=== PATIENT | female | born 1970 | race American Indian/Alaskan Native ===

== ENCOUNTER 2019-03-15 15:06 | Observation (INO) | payer OTHER ==
[2019-03-15] MEDS ORDERED: ASPIRIN PO ONE (15:30)
--- NOTE | 2019-03-15 16:32 | Emergency Department Report ---
ED Chest Pain HPI - General Chief Complaint: Chest Pain Stated Complaint: CHEST PAIN Time Seen by Provider: 03/15/19 15:50 Source: EMS Mode of arrival: Ambulatory Limitations: No Limitations - History of Present Illness Initial Comments: 48-year-old female with history of hypertension and diabetes presents to ED with chest pain. States pain was substernal radiating into her right arm. Denies shortness of breath. Patient states pain began while she was at court this afternoon. Patient reports she has been having the same intermittent chest pain over the last 3 weeks. Underwent stress test one week ago that she is scheduled to undergo cardiac cath in 2 days. Patient given aspirin and nitroglycerin by EMS, reported chest pain has improved. MD Complaint: chest pain -: This afternoon Onset: during rest Pain Location: substernal Pain Radiation: RUE Severity: moderate Severity scale (0 -10): 6 Quality: tightness Improves With: nitroglycerin Worsens With: nothing re: denies: dyspnea Treatments Prior to Arrival: aspirin, nitroglycerin - Related Data Home Medications Medication Instructions Recorded Confirmed Last Taken Carvedilol [Coreg] 25 mg PO BID 03/15/19 03/15/19 Unknown Chlorthalidone [Thalitone] 25 mg PO QDAY 03/15/19 03/15/[address] [Voltaren Dr] 75 mg PO BID 03/15/19 03/15/19 Unknown Esomeprazole Magnesium [Nexium 40 mg PO QDAY 03/15/19 03/15/19 03/15/19 24Hr] Furosemide [Lasix TAB] 40 mg PO QDAY 03/15/19 03/15/19 Unknown NIFEdipine [Nifedipine ER] 30 mg PO QDAY 03/15/19 03/15/19 03/15/19 Phentermine HCl [Adipex-P] 37.5 mg PO QAM 03/15/19 03/15/19 03/15/19 metFORMIN XR [Glucophage XR] 500 mg PO QDAY 03/15/19 03/15/19 Unknown Allergies Allergy/AdvReac Type Severity Reaction Status Date / Time codeine AdvReac Rash Verified 03/15/19 15:54 Heart Score - HEART Score History: Moderately suspicious EKG: Non-specific Age: 45-65 Risk factors: 1-2 risk factors Troponin: < normal limit HEART Score: 4 ED Review of Systems ROS: Stated complaint: CHEST PAIN Other details as noted in HPI Comment: All other systems reviewed and negative Constitutional: denies: chills, fever Respiratory: denies: shortness of breath Cardiovascular: chest pain Gastrointestinal: denies: nausea, vomiting ED Past Medical Hx - Past Medical History Previous Medical History?: Yes Hx Hypertension: No Hx CVA: No Hx Heart Attack/AMI: No Hx Congestive Heart Failure: No Hx Diabetes: Yes Hx Deep Vein Thrombosis: No Hx Pulmonary Embolism: No Hx GERD: No Hx Liver Disease: No Hx Renal Disease: No Hx of Cancer: No Hx Sickle Cell Disease: No Hx Arthritis: No Hx Headaches / Migraines: No Hx Seizures: No Hx Kidney Stones: No Hx Psychiatric Treatment: No Hx Asthma: No Hx COPD: No Hx Tuberculosis: No Hx Dementia: No Hx HIV: Yes Additional medical history: hx of chest pain - Surgical History Past Surgical History?: No Hx Coronary Stent: No Hx Open Heart Surgery: No Hx Pacemaker: No Hx Internal Defibrillator: No Hx Cholecystectomy: No Hx Appendectomy: No Hx Breast Surgery: No - Social History Smoking Status: Never Smoker Substance Use Type: None - Medications Home Medications: Home Medications Medication Instructions Recorded Confirmed Last Taken Type Carvedilol [Coreg] 25 mg PO BID 03/15/19 03/15/19 Unknown History Chlorthalidone [Thalitone] 25 mg PO QDAY 03/15/19 03/15/[address] [Voltaren Dr] 75 mg PO BID 03/15/19 03/15/19 Unknown History Esomeprazole Magnesium [Nexium 40 mg PO QDAY 03/15/19 03/15/19 03/15/19 History 24Hr] Furosemide [Lasix TAB] 40 mg PO QDAY 03/15/19 03/15/19 Unknown History NIFEdipine [Nifedipine ER] 30 mg PO QDAY 03/15/19 03/15/19 03/15/19 History Phentermine HCl [Adipex-P] 37.5 mg PO QAM 03/15/19 03/15/19 03/15/19 History metFORMIN XR [Glucophage XR] 500 mg PO QDAY 03/15/19 03/15/19 Unknown History ED Physical Exam - General Limitations: No Limitations General appearance: alert, in no apparent distress, obese - Head Head exam: Present: atraumatic, normocephalic - Eye Eye exam: Present: normal appearance - ENT ENT exam: Present: mucous membranes moist - Neck Neck exam: Present: normal inspection - Respiratory Respiratory exam: Present: normal lung sounds bilaterally. Absent: respiratory distress - Cardiovascular Cardiovascular Exam: Present: regular rate, normal rhythm - GI/Abdominal GI/Abdominal exam: Absent: distended - Extremities Exam Extremities exam: Present: normal inspection - Neurological Exam Neurological exam: Present: alert, oriented X3 - Psychiatric Psychiatric exam: Present: normal affect, normal mood - Skin Skin exam: Present: warm, dry, intact, normal color ED Course Vital Signs 03/15/19 03/15/19 03/15/19 15:18 15:24 15:31 Temperature 98.2 F Pulse Rate 87 87 Respiratory 18 15 Rate Blood Pressure 179/87 178/104 Blood Pressure 179/87 [Right] O2 Sat by Pulse 99 98 99 Oximetry - Consultations Consultation #1: 03/15/19 18:38 Spoke w/ Dr Ch w/ [facility]. Is aware of pt. ED Medical Decision Making - Lab Data Result diagrams: 03/15/19 17:14 03/15/19 17:14 - EKG Data -: EKG Interpreted by [place] EKG shows normal: sinus rhythm, axis, intervals, QRS complexes, ST-T waves Rate: normal - EKG Data Interpretation: LVH, other (previous anterior infarct) - Radiology Data Radiology results: report reviewed, image reviewed - Medical Decision Making 48 yo F w/ HTN presents with chest pain, onset while in court. History of abnormal stress test last week w/ Dr Henson of [facility]. Scheduled to have cardiac cath in 2 days. EKG shows no ST changes, troponin negative. Spoke w/ stone derrickman and rigger. States keep NPO after midnight in case pt undergoes cath tomorrow. Spoke w/ hospitalist, Dr Nixon, who will be admitting the patient. - Differential Diagnosis ACS, CHF, pneumonia Critical care attestation.: If time is entered above; I have spent that time in minutes in the direct care of this critically ill patient, excluding procedure time. ED Disposition Clinical Impression: Chest pain Disposition: -09 OP ADMIT IP TO THIS HOSP Is pt being admited?: Yes Condition: Stable Time of Disposition: 18:09
[2019-03-15] MEDS ORDERED: NITROSTAT SL ONE (17:05)
[2019-03-15] MEDS ORDERED: NITROSTAT SL PRN (17:27)
[2019-03-15 17:30] LABS: Basophils # (Auto) 0.2 K/mm3 (0.0-0.1); Basophils % (Auto) 1.2 % (0.0-1.8); Eosinophils # (Auto) 0.2 K/mm3 (0.0-0.4); Eosinophils % (Auto) 1.1 % (0.0-4.3); Hematocrit 40.5 % (30.3-42.9); Hemoglobin 13.3 gm/dl (10.1-14.3); Lymphocytes # (Auto) 2.9 K/mm3 (1.2-5.4); Lymphocytes % (Auto) 20.6 % (13.4-35.0); Mean Corpuscular HGB Conc 33 % (30-34); Mean Corpuscular Volume 84 fl (79-97); Monocytes # (Auto) 0.9 K/mm3 (0.0-0.8); Monocytes % (Auto) 6.7 % (0.0-7.3); Platelet Count 375 K/mm3 (140-440); Red Blood Count 4.81 M/mm3 (3.65-5.03); Red Cell Distribution Width 15.2 % (13.2-15.2)
[2019-03-15] MEDS ORDERED: MORPHINE IV ONE (17:31)
[2019-03-15] MEDS ORDERED: ZOFRAN IV ONE (17:33)
[2019-03-15] MEDS ORDERED: ALUM-MAG HYDROX-SIMETH 200-200-20MG/5ML PO ONE (17:35)
--- NOTE | 2019-03-15 17:58 | XRay Report ---
PROCEDURE: XR CHEST 1V AP TECHNIQUE: Chest radiograph single view. HISTORY: Chest Pain COMPARISONS: None . FINDINGS: Heart: Normal. Mediastinum/Vessels: Normal. Lungs/Pleural space: Normal. Bony thorax: No acute osseous abnormality. Life support devices: None. IMPRESSION: No acute cardiopulmonary abnormality. This document is electronically signed by Dexter Lopes MD., Mar 15 2019 05:56:20 PM ET
[2019-03-15 18:02] LABS: BUN/Creatinine Ratio 13; Blood Urea Nitrogen 12 mg/dL (7-17); Calcium 9.1 mg/dL (8.4-10.2); Hemolysis Index 5
[2019-03-15 18:08] LABS: Bilirubin,Urine NEG (Negative); Blood,Urine SM (Negative); Color,Urine Yellow (Yellow); Protein,Urine <15 mg/dL mg/dL (Negative); Urobilinogen,Urine < 2.0 mg/dL (<2.0)
[2019-03-15] MEDS ORDERED: DILAUDID ONE (20:28)
[2019-03-15] MEDS: DILAUDID IV PRN (21:05)
[2019-03-15] MEDS ORDERED: SODIUM CHLORIDE FLUSH SYRINGE 10 ML IV PRN (22:25)
[2019-03-15] MEDS ORDERED: PERCOCET 5/325 PO PRN (22:25)
[2019-03-15] MEDS ORDERED: ZOFRAN IV PRN (22:25)
[2019-03-15] MEDS ORDERED: TYLENOL PO PRN (22:25)
[2019-03-16] MEDS: COREG PO SCH ×2 (01:24→11:45)
[2019-03-16] MEDS: PEPCID PO SCH ×2 (01:25→11:45)
[2019-03-16] MEDS: DILAUDID IV PRN ×2 (01:25→09:10)
[2019-03-16] MEDS: VOLTAREN DR PO SCH ×2 (01:36→13:05)
--- NOTE | 2019-03-16 06:45 | Event Note ---
Date: 03/15/19 See h/pinreports Chest pain For Cath Had w/u in [facility] offices by Dr Henson Hence Lexiscan and ECHO not ordered
[2019-03-16 07:19] LABS: Basophils # (Auto) 0.1 K/mm3 (0.0-0.1); Basophils % (Auto) 1.3 % (0.0-1.8); Eosinophils # (Auto) 0.2 K/mm3 (0.0-0.4); Eosinophils % (Auto) 1.8 % (0.0-4.3); Hematocrit 37.9 % (30.3-42.9); Hemoglobin 12.7 gm/dl (10.1-14.3); Lymphocytes # (Auto) 2.5 K/mm3 (1.2-5.4); Lymphocytes % (Auto) 24.4 % (13.4-35.0); Mean Corpuscular HGB Conc 34 % (30-34); Mean Corpuscular Volume 84 fl (79-97); Monocytes # (Auto) 0.6 K/mm3 (0.0-0.8); Monocytes % (Auto) 5.8 % (0.0-7.3); Platelet Count 302 K/mm3 (140-440); Red Blood Count 4.53 M/mm3 (3.65-5.03); Red Cell Distribution Width 15.5 % (13.2-15.2)
--- NOTE | 2019-03-16 07:39 | History and Physical Report ---
CHIEF COMPLAINT: Left-sided chest pain since 3 weeks. HISTORY OF PRESENT ILLNESS: A 48-year-old female with history of hypertension and diabetes, comes in for recurrent chest pain of 3 weeks' duration. The patient has been having chest pain for the past few weeks and the patient went to [facility] for Cardiology evaluation. The patient had a stress test and echocardiogram by Dr. Hneson and she is scheduled for cardiac catheterization on in [facility]. Chest pain is a dull to sharp and intermittent in nature. No diaphoresis, no palpitations. No shortness of breath. Chest pain is recurrent. Initially when she went to the Cardiology, it was for cardiac eval because of the family history. She was asymptomatic at that point. After being evaluated, the patient started developing chest pain for the last 3 weeks. The patient has history of hypertension and diabetes. PAST MEDICAL HISTORY: Significant for hypertension and diabetes. PAST SURGICAL HISTORY: None. SOCIAL HISTORY: Does not smoke. No alcohol, no recreational drugs. FAMILY HISTORY: Significant for hypertension and cardiac disease. CURRENT MEDICATIONS: Coreg 25 mg twice a day, chlorthalidone 25 mg once a day, Lasix 40 mg p.o. daily, nifedipine 30 mg p.o. daily, phentermine 37.5 p.o. daily, metformin 500 p.o. daily. REVIEW OF SYSTEMS: Significant for left-sided chest pain, intermittent for the last 3 weeks. Otherwise, review of systems negative. A 14-point review of systems done. PHYSICAL EXAMINATION: GENERAL: Middle-aged female, cooperative during examination. VITAL SIGNS: Blood pressure is 168/69, temperature is 97, pulse is 77, respirations 18. HEENT: Unremarkable. Pupils equal and reactive. NECK: Supple, no lymphadenopathy, no thyromegaly. LUNGS: Clear to auscultation and percussion. Good air entry. CARDIOVASCULAR SYSTEM: S1, S2 heard. No gallop, no murmur, no rub. Apical impulse in left fifth intercostal space in midclavicular line. ABDOMEN: Soft and benign. No hepatosplenomegaly, no guarding, no rigidity. Hernial orifices are normal. EXTREMITIES: Good pedal pulses. No pedal edema. CENTRAL NERVOUS SYSTEM: Alert and oriented x 4, nonfocal exam. SKIN: Normal. LABORATORY DATA: White count is 13,900, hemoglobin and hematocrit are normal. Platelet count is normal. Potassium is slightly high at 5.2, glucose is 124. A1c 6.7. Urine WBC 26. DIAGNOSTIC DATA: EKG shows sinus rhythm, heart rate of 75 per minute, LVH by voltage criteria. No acute ST-T wave changes. Nonspecific ST-T wave changes. Chest x-ray shows no cardiopulmonary abnormality. ASSESSMENT AND PLAN: 1. Chest pain, rule out myocardial infarction, chest pain protocol. Lexiscan and echocardiogram not ordered. Cardiology consult was requested. The patient was due for cardiac catheterization on , may be done tomorrow. 2. Hypertension. Continue antihypertensives. 3. Type 2 diabetes. Continue metformin and coverage. 4. Deep venous thrombosis prophylaxis, Lovenox 40 mg subcutaneous daily. [facility]# [id number] ADIEL/NTS
[2019-03-16 07:48] LABS: Alanine Aminotransferase 17 units/L (7-56); Albumin 3.5 g/dL (3.9-5); BUN/Creatinine Ratio 18; Blood Urea Nitrogen 14 mg/dL (7-17); Calcium 8.6 mg/dL (8.4-10.2); Hemolysis Index 14
[2019-03-16] MEDS ORDERED: GLUCOPHAGE XR PO SCH (08:00)
[2019-03-16] MEDS ORDERED: HEPARIN/NS 5000 UNIT/500ML(CATH LAB) 1,000 ML IR ONE (08:49)
[2019-03-16] MEDS ORDERED: XYLOCAINE 2% INFILTRATI ONE (08:49)
[2019-03-16] MEDS ORDERED: HEPARIN 10,000 UNITS/10 ML ONE (08:49)
[2019-03-16] MEDS ORDERED: SUBLIMAZE ONE (08:49)
[2019-03-16] MEDS ORDERED: VERSED ONE (08:49)
[2019-03-16] MEDS ORDERED: CALAN ONE (08:49)
[2019-03-16] MEDS ORDERED: NITROGLYCERIN SYRINGE 3 ML ONE (08:50)
[2019-03-16] MEDS ORDERED: ASPIRIN ONE (08:59)
[2019-03-16] MEDS ORDERED: NACL 0.9% 500 ML 500 ML IV SCH (09:00)
[2019-03-16] MEDS ORDERED: NACL 0.9% 500 ML 500 ML ONE (09:30)
--- NOTE | 2019-03-16 09:32 | Consultation ---
History of Present Illness Consult date: 03/16/19 Consult reason: chest pain History of present illness: Patient is a 48 year old woman with a history of Diabetes, Hypertension, Obstructive Sleep apnea on home CPAP who presented with chest pain. Cardiac consultation has been requested. Cycled cardiac enzymes are normal thus far and her ECG is sinus rhythm with anterior Qwaves. No change from prior ECG. Patient is known to [facility] with recent cardiac testing. An echocardiogram shows a normal left ventricular systolic function with a well preserved ejection fraction. A week ago she underwent a treadmill stress test that is reported as equivocal. Medications and Allergies Allergies Allergy/AdvReac Type Severity Reaction Status Date / Time codeine AdvReac Rash Verified 03/15/19 15:54 Home Medications Medication Instructions Recorded Confirmed Last Taken Type Carvedilol [Coreg] 25 mg PO BID 03/15/19 03/15/19 Unknown History Chlorthalidone [Thalitone] 25 mg PO QDAY 03/15/19 03/15/[address] [[place]az [place]] 75 mg PO BID 03/15/19 03/15/19 Unknown History Esomeprazole Magnesium [Nexium 40 mg PO QDAY 03/15/19 03/15/19 03/15/19 History 24Hr] Furosemide [Lasix TAB] 40 mg PO QDAY 03/15/19 03/15/19 Unknown History NIFEdipine [Nifedipine ER] 30 mg PO QDAY 03/15/19 03/15/19 03/15/19 History Phentermine HCl [Adipex-P] 37.5 mg PO QAM 03/15/19 03/15/19 03/15/19 History metFORMIN XR [Glucophage XR] 500 mg PO QDAY 03/15/19 03/15/19 Unknown History Active Meds: Active Medications Acetaminophen (Tylenol) 650 mg PO Q4H PRN PRN Reason: Pain MILD(1-3)/Fever >100.5/TAYLOR Carvedilol (Coreg) 25 mg PO BID [facility] Last Admin: 03/16/19 01:24 Dose: 25 mg Documented by: Chlorthalidone (Thalitone) 25 mg PO QDAY [facility] Diclofenac Sodium (Voltaren Dr) 75 mg PO BID [facility] Last Admin: 03/16/19 01:36 Dose: 75 mg Documented by: Enoxaparin Sodium (Lovenox) 40 mg SUB-Q QDAY@2200 [facility] Famotidine (Pepcid) 20 mg PO BID [facility] Last Admin: 03/16/19 01:25 Dose: 20 mg Documented by: Furosemide (Lasix) 40 mg PO QDAY [facility] Hydromorphone HCl (Dilaudid) 0.5 mg IV Q3H PRN PRN Reason: Pain , Severe (7-10) Last Admin: 03/16/19 09:10 Dose: 0.5 mg Documented by: Ceftriaxone Sodium (Rocephin/Ns 2 Gm/100 Ml) 2 gm in 100 mls @ 200 mls/hr IV Q24HR KELLI; Protocol Sodium Chloride (Nacl 0.9% 500 Ml) 500 mls @ 50 mls/hr IV DIRECT [facility]LL[facility] Stop: 03/16/19 18:59 Insulin Human Lispro (Humalog) 0 unit SUB-Q ACHS KELLI; Protocol Metformin HCl (Glucophage Xr) 500 mg PO QAMDIAB [facility] Nifedipine (Procardia Xl) 30 mg PO QDAY [facility] Nitroglycerin (Nitrostat) 0.4 mg SL .Q5MIN PRN PRN Reason: Chest Pain Last Admin: 03/15/19 17:30 Dose: 0.4 mg Documented by: Ondansetron HCl (Zofran) 4 mg IV Q8H PRN PRN Reason: Nausea And Vomiting Oxycodone/Acetaminophen (Percocet 5/325) 1 tab PO Q6H PRN PRN Reason: Pain, Moderate (4-6) Sodium Chloride (Sodium Chloride Flush Syringe 10 Ml) 10 ml IV BID [facility] Sodium Chloride (Sodium Chloride Flush Syringe 10 Ml) 10 ml IV PRN PRN PRN Reason: LINE FLUSH Physical Examination Vital Signs Pulse Ox 99 03/15/19 15:18 General appearance: no acute distress HEENT: Positive: PERRL Neck: Positive: trachea midline Cardiac: Positive: Reg Rate and Rhythm Lungs: Positive: Decreased Breath Sounds Neuro: Positive: Grossly Intact Extremities: Absent: edema Results 03/16/19 05:53 03/16/19 05:53 Cardiac Enzymes 03/16/19 Range/Units 05:53 AST 13 (5-40) units/L CBC 03/15/19 03/16/19 Range/Units 17:14 05:53 WBC 13.9 H 10.3 (4.5-11.0) K/mm3 RBC 4.81 4.53 (3.65-5.03) M/mm3 Hgb 13.3 12.7 (10.1-14.3) gm/dl Hct 40.5 37.9 (30.3-42.9) % Plt Count 375 302 (140-440) K/mm3 Lymph # 2.9 2.5 (1.2-5.4) K/mm3 [place] # 0.9 H 0.6 (0.0-0.8) K/mm3 Eos # 0.2 0.2 (0.0-0.4) K/mm3 Baso # 0.2 H 0.1 (0.0-0.1) K/mm3 Comprehensive Metabolic Panel 03/15/19 03/16/19 Range/Units 17:14 05:53 Sodium 138 138 (137-145) mmol/L Potassium 5.2 H 4.5 (3.6-5.0) mmol/L Chloride 100.3 100.7 (98-107) mmol/L Carbon Dioxide 30 23 D (22-30) mmol/L BUN 12 14 (7-17) mg/dL Creatinine 0.9 0.8 (0.7-1.2) mg/dL Glucose 124 H 138 H (65-100) mg/dL Calcium 9.1 8.6 (8.4-10.2) mg/dL AST 13 (5-40) units/L ALT 17 (7-56) units/L Alkaline Phosphatase 107 (35-129) units/L Total Protein 6.7 (6.3-8.2) g/dL Albumin 3.5 L (3.9-5) g/dL Assessment and Plan Chest pain Hypertension Diabetes Obstructive sleep apnea on home CPAP Normal LVEF by echo 01/2019. Equivocal TMST 02/2019. We will planned for a cardiac cath today for further ischemic evaluation.
[2019-03-16] MEDS ORDERED: THALITONE PO SCH (10:00)
[2019-03-16] MEDS ORDERED: ESOMEPRAZOLE MAGNESIUM 40 MG PO SCH (10:00)
[2019-03-16] MEDS ORDERED: PROCARDIA XL PO SCH (10:00)
[2019-03-16] MEDS ORDERED: ROCEPHIN/NS 2 GM/100 ML 2 GM/100 ML BAG IV SCH (10:00)
[2019-03-16] MEDS ORDERED: SODIUM CHLORIDE FLUSH SYRINGE 10 ML IV SCH (10:00)
[2019-03-16] MEDS ORDERED: LASIX PO SCH (10:00)
--- NOTE | 2019-03-16 11:00 | Cardiac Catherization Report ---
LEFT HEART CATHETERIZATION INDICATION FOR PROCEDURE: Persistent chest pain, equivocal stress test as an outpatient. PROCEDURES PERFORMED: 1. Selective left and right coronary angiography. 2. Left ventriculography. DESCRIPTION OF PROCEDURE: After obtaining the consent, the patient was draped using sterile technique. Lidocaine 2% was injected into the right wrist. A 5-Jordanian vascular sheath was inserted into the right radial artery. A 5-Jordanian JL3.5 catheter was used to selectively engage left coronary artery. A 5-Jordanian JR4 catheter was used to selectively engage the right coronary artery. A 5-Jordanian JR4 catheter was used to hand inject the left ventriculogram. No complications occurred during the procedure. Hemostasis was achieved at the end of the procedure using manual pressure. SPECIMEN REMOVED: None. TOTAL SEDATION ADMINISTERED: 1 mg of IV Versed and 25 mcg of IV fentanyl. PHYSICIAN AND PATIENT [id number] SEDATION START TIME: 9:46 a.m. PHYSICIAN/PATIENT [id number] SEDATION STOP TIME: 9:57 a.m. TOTAL SEDATION TIME: 11 minutes. FINDINGS: HEMODYNAMICS: Aortic pressure 128/92. LV systolic pressure 134 mmHg. LV end diastolic pressure 24 mmHg. No significant gradient was noted across the left ventricular outflow tract. CARDIAC STRUCTURES: Normal left ventricular size and systolic function with an ejection fraction estimated at 60%. Normal wall motion. CORONARY ANATOMY: 1. This is a right dominant circulation. 2. The left main is angiographically normal. The LAD is angiographically normal. The left circumflex artery is angiographically normal. The right coronary artery is angiographically normal. IMPRESSION: Angiographically normal right dominant coronary circulation, normal left ventricular ejection fraction. LVEDP measured at 24 mmHg. RECOMMENDATION: Follow up as an outpatient in the office with primary tempering machine operator. JOB# [id number] JULIEN/ALIZE
[2019-03-16] MEDS: HumaLOG SUB-Q SCH ×2 (11:46→13:05)
[2019-03-16 11:58] LABS: INR 0.97 (0.87-1.13)
[2019-03-16] MEDS ORDERED: PROTONIX PO SCH (12:00)
[2019-03-16 12:31] VITALS: BP 151/83
--- NOTE | 2019-03-16 14:43 | Discharge Summary ---
Providers - Providers Date of Admission: 03/15/19 18:10 Date of discharge: 03/16/19 Attending physician: URSULA BRICE 03/15/19 18:37 Consult to Physician [CONS] Stat Comment: Consulting Provider: ADRIANA FINNEY Physician Instructions: Reason For Exam: chest pain Primary care physician: FUEL SYSTEM MAINTENANCE WORKER Hospitalization Reason for admission: Chest pain Condition: Stable Pertinent studies: CXR Cardiac cath Hospital course: Pat48 year old woman with a history of Diabetes, Hypertension, Obstructive Sleep apnea on home CPAP who presented with chest pain. Cardiac consultation has been requested. Cycled cardiac enzymes are normal thus far and her ECG is sinus rhythm .Symptomatically managed,evaluated by cardoiology,had heart cath,nonobstructive coronaries Medications optimised,Today patient feels better,no new complains Vital signs stable,Physical exam is unremarkable. cleared by cardiology,Stable at discharge. Discharge diagnosis; --Atypical Chest pain; status post cardiac catheterization Nonobstructive coronary disease Normal LVEF by echo 01/2019. Equivocal TMST 02/2019. --Hypertension; moderate control continue current antihypertensives --2Diabetes; Accu-Chek sliding scale coverage and ADA diet, oral hypoglycemics A1c 6.7 --Obstructive sleep apnea;Continue home CPAP --Morbid obesity; BMI 44.6 Advised dietary modification and exercise as tolerated and weight reduction When medically stable Disposition: DC-01 TO HOME OR SELFCARE Time spent for discharge: 32 min Core Measure Documentation - Palliative Care Palliative Care/ Comfort Measures: Not Applicable - Core Measures Any of the following diagnoses?: none Exam - Constitutional Vitals: Temp Pulse Resp BP Pulse Ox 98.0 F 80 18 151/83 98 03/16/19 04:41 03/16/19 11:45 03/16/19 04:41 03/16/19 11:45 03/16/19 04:41 General appearance: Present: no acute distress, well-nourished - EENT Eyes: Present: PERRL, EOM intact - Neck Neck: Present: supple, normal ROM - Respiratory Respiratory effort: normal Respiratory: bilateral: diminished, negative: rales, rhonchi, wheezing - Cardiovascular Rhythm: regular Heart Sounds: Present: S1 & S2 - Extremities Extremities: no ischemia, No edema - Abdominal General gastrointestinal: Present: soft, non-tender, non-distended, normal bowel sounds - Integumentary Integumentary: Present: clear, warm - Musculoskeletal Musculoskeletal: strength equal bilaterally - Psychiatric Psychiatric: appropriate mood/affect, cooperative - Neurologic Neurologic: CNII-XII intact, moves all extremities Plan Activity: no restrictions Diet: diabetic Additional Instructions: History of chest pain or shortness of breath contact immediately or go to emergency room as needed. Advice 2 days work excuse on 03/17/19 and 03/18/2019. Advised weight reduction when medically stable. Continue CPAP as before Follow up with: PRIMARY CAREMD [Primary Care Provider] - 3-5 Days GONZÁLEZ LAZO MD [Staff Physician] - 7 Days Prescriptions: Furosemide [Lasix TAB] 40 mg PO QDAY #30 tablet Esomeprazole Magnesium [Nexium 24Hr] 40 mg PO QDAY #30 capsule. NIFEdipine [Nifedipine ER] 30 mg PO QDAY #30 tablet.er Chlorthalidone [Thalitone] 25 mg PO QDAY #30 tablet
[2019-03-16] MEDS ORDERED: LOVENOX SUB-Q SCH (22:00)
== END 2019-03-16 15:51 | disposition home or self-care (01) ==
LOC: ED 15:06 → 4A 18:10
PROVIDERS: ADMIT Internal Medicine; ATTEND Internal Medicine
DX: R07.89 Other chest pain (principal); I10 Essential (primary) hypertension; E11.9 Type 2 diabetes mellitus without complications; G47.33 Obstructive sleep apnea (adult) (pediatric); Z79.4 Long term (current) use of insulin; Z79.899 Other long term (current) drug therapy
CPT/HCPCS: 36415; 71045; 80048; 80053; 81001; 82962; 83036; 84484; 85025; 85379; 85610; 93005; 93010; 93458; 94660; 96365; 96375; 96376; 99284; C1894; G0378; J0696; J1170; J1644; J2250; J2270; J2405; J3010; J7040; Q9967